=== PATIENT | female | born 1995 | race African-American/Black ===

== ENCOUNTER 2017-07-14 01:21 | Emergency (ER) | payer MEDICAID, OTHER ==
[~2017-07-14] VITALS: Ht 165.1 cm; Wt 72.6 kg
[~2017-07-14 01:21] MED LIST: BACTRIM DS TAB1 EAC1 ORAL; IBUPROFEN400 MG ORAL; IBUPROFEN600 MG PO; KEFLEX500 MG ORAL
[2017-07-14 01:34] VITALS: BP 122/71
[2017-07-14] MEDS ORDERED: Norco 5mg/325mg tab ORAL ONE (02:15)
[2017-07-14] MEDS ORDERED: Bactrim DS (160mg/800mg) tab ORAL ONE (02:15)
[2017-07-14] MEDS ORDERED: BACTRIM DS TAB1 EAC1 ORAL (02:16)
[2017-07-14] MEDS ORDERED: IBUPROFEN600 MG ORAL (02:16)
--- NOTE | 2017-07-14 02:17 | Emergency Room Report ---
History of Present Illness General Chief Complaint: Skin Rash/Abscess Source: Patient Present Illness HPI Is a 21-year-old female with recurrent abscess in her axilla. She never had it I&D before. She present with abscess to the left axilla. Onset for last 2-3 days. Painful with palpation or movement. No drainage. Does have swelling. Similar symptom in the past. Allergies: Coded Allergies: No Known Allergies (Unverified , 04/19/12) Patient History Past Medical History: see triage record, old chart reviewed Past Surgical History: none Pertinent Family History: none Social History: Denies: smoking Last Menstrual Period: Jun Now: No Immunizations: other Reviewed Nursing Documentation: PMH: Agreed, PSxH: Agreed Nursing Documentation-PMH Past Medical History: No Stated History Review of Systems Eye: Denies: eye pain, blurred vision ENT: Denies: ear pain, nose congestion, throat swelling Respiratory: Denies: cough, shortness of breath Cardiovascular: Denies: chest pain, palpitations Gastrointestinal: Denies: abdominal pain, diarrhea, nausea, vomiting Musculoskeletal: Denies: back pain, joint pain Skin: Denies: rash Neurological: Denies: headache, numbness Endocrine: Denies: increased thirst, increased urine Hematologic/Lymphatic: Denies: easy bruising All Other Systems: negative except mentioned in HPI Physical Exam Vital Signs Date Time Temp Pulse Resp B/P (MAP) Pulse Ox O2 Delivery O2 Flow Rate FiO2 07/14/17 01:23 98.1 80 16 120/69 100 Room Air vitals normal Sp02 EP Interpretation: reviewed, normal General Appearance: well appearing, no apparent distress, alert Head: normocephalic, atraumatic Eyes: bilateral eye PERRL, bilateral eye EOMI ENT: hearing grossly normal, normal pharynx Neck: full range of motion, supple, no meningismus Respiratory: chest non-tender, lungs clear, normal breath sounds Cardiovascular #1: regular rate, rhythm, no murmur Gastrointestinal: normal bowel sounds, non tender, no mass, no organomegaly, no bruit, non-distended Musculoskeletal: back normal, gait/station normal, normal range of motion, other - Left axilla: Is a large 3 x 2 cm area fluctuant. Tender to palpation. No redness. Neurologic: alert, oriented x3 Psychiatric: mood/affect normal Skin: warm/dry Procedures Incision and Drainage Incision and Drainage : Consent: Verbal Site: Left axilla Blade Size: 11 I & D Procedure: betadine prep, sterile drapes applied, gauze wick placed Wound Location: axilla Anesthesia: 1% Lidocaine Volume Anesthetic (ccs): 5 Patient Tolerated: Well Complications: None Progress Area clean with chlorhexidine and in Betadine. Local anesthetic 1% lidocaine without epinephrine. I made a 2 cm incision. There was moderate amount of pus expressed. Loculated area broken up. Wound irrigated. Packed with iodoform gauze. Patient tolerated procedure without a problem. Medical Decision Making Diagnostic Impression: Primary Impression: Abscess of axilla ER Course Present with abscess of the axilla. Most likely staff. Discharged home. No deep infection. No necrotizing fasciitis. Last Vital Signs Date Time Temp Pulse Resp B/P (MAP) Pulse Ox O2 Delivery O2 Flow Rate FiO2 07/14/17 01:34 98.1 78 16 122/71 100 Room Air Status: improved Disposition: HOME, SELF-CARE Condition: Stable Scripts Ibuprofen* (MOTRIN*) 600 Mg Tablet 600 MG ORAL THREE TIMES A DAY, #30 TAB 0 Refills Prov: ALIVIA CHANDLER M.D. 07/14/17 Trimethoprim/Sulfamethoxazole 160/800* (BACTRIM DS TABLET*) 1 Each Tablet 1 TAB ORAL Q12H, #14 TAB 0 Refills Prov: ALIVIA CHANDLER M.D. 07/14/17 Referrals: Nolan SEGAL,REFERRING (PCP) Patient Instructions: Abscess Additional Instructions: Followup with your DrJohn in 7 days. You may benefit from referral to see a surgeon. He did get your doctor to refer you to her surgeon or call [facility] surgical clinic. Return if symptom worsen. ALIVIA CHANDLER M.D. Jul 14, 2017 02:17
[2017-07-14 02:30] VITALS: BP 122/71
== END 2017-07-14 02:30 | disposition home or self-care (01) ==
LOC: EMR 01:47
DX: L02.412 Cutaneous abscess of left axilla (principal)
CPT/HCPCS: 10060; 99284

== ENCOUNTER 2017-07-17 01:03 | Emergency (ER) | payer OTHER ==
[~2017-07-17] VITALS: Ht 165.1 cm; Wt 72.6 kg
[~2017-07-17 01:03] MED LIST changes: +IBUPROFEN600 MG ORAL
[2017-07-17 01:20] VITALS: BP 102/66
--- NOTE | 2017-07-17 01:31 | Emergency Room Report ---
History of Present Illness General Chief Complaint: Wound Recheck/Suture Removal Source: Patient Present Illness HPI Is a 21-year-old female whom I saw 2 days ago for left axillary abscess. I I&D it. She is feeling better. Still having a lot of drainage. No fever chills but no nausea no vomiting. Increasing pain today. Allergies: Coded Allergies: No Known Allergies (Unverified , 04/19/12) Patient History Past Medical History: see triage record, old chart reviewed Past Surgical History: none Pertinent Family History: none Social History: Denies: smoking Last Menstrual Period: 07/09/17 Now: No : 0 Para: 0 Immunizations: other Reviewed Nursing Documentation: PMH: Agreed, PSxH: Agreed Nursing Documentation-PMH Past Medical History: No Stated History Review of Systems Eye: Denies: eye pain, blurred vision ENT: Denies: ear pain, nose congestion, throat swelling Respiratory: Denies: cough, shortness of breath Cardiovascular: Denies: chest pain, palpitations Gastrointestinal: Denies: abdominal pain, diarrhea, nausea, vomiting Musculoskeletal: Denies: back pain, joint pain Skin: Denies: rash Neurological: Denies: headache, numbness Endocrine: Denies: increased thirst, increased urine Hematologic/Lymphatic: Denies: easy bruising All Other Systems: negative except mentioned in HPI Physical Exam Vital Signs Date Time Temp Pulse Resp B/P (MAP) Pulse Ox O2 Delivery O2 Flow Rate FiO2 07/17/17 01:09 97.5 73 20 102/66 99 Room Air vitals normal Sp02 EP Interpretation: reviewed, normal General Appearance: well appearing, no apparent distress, alert Head: normocephalic, atraumatic Eyes: bilateral eye PERRL, bilateral eye EOMI ENT: hearing grossly normal, normal pharynx Neck: full range of motion, supple, no meningismus Respiratory: chest non-tender, lungs clear, normal breath sounds Cardiovascular #1: regular rate, rhythm, no murmur Gastrointestinal: normal bowel sounds, non tender, no mass, no organomegaly, no bruit, non-distended Musculoskeletal: back normal, gait/station normal, normal range of motion, other - Left axilla: I removed the packing. There still small amount of purulent drainage. Psychiatric: mood/affect normal Skin: warm/dry Procedures Incision and Drainage Incision and Drainage : Consent: Verbal Site: Left axilla Blade Size: 11 I & D Procedure: betadine prep Wound Location: upper extremity Anesthesia: 1% Lidocaine Patient Tolerated: Well Complications: None Progress Local anesthetic of 1% lidocaine without epinephrine injected. Using a forcep by open up the wound. There is still small amount of purulent discharge. I repacked it. Patient tolerated procedure without a problem. Medical Decision Making Diagnostic Impression: Primary Impression: Encounter for wound re-check Additional Impression: Abscess of axilla ER Course She presents with abscess to axilla. Improving but still draining. New packing placed. Patient will be discharged with followup in 2-3 days. Last Vital Signs Date Time Temp Pulse Resp B/P (MAP) Pulse Ox O2 Delivery O2 Flow Rate FiO2 07/17/17 01:09 97.5 73 20 102/66 99 Room Air Status: improved Disposition: HOME, SELF-CARE Condition: Stable Additional Instructions: Followup with your Dr. in 2-3 days. Return for recheck. Return if worse. ALIVIA CHANDLER M.D. Jul 17, 2017 01:31
[2017-07-17] MEDS ORDERED: Norco 5mg/325mg tab ORAL ONE (01:45)
== END 2017-07-17 01:30 | disposition home or self-care (01) ==
LOC: EMR 01:10
DX: L02.412 Cutaneous abscess of left axilla (principal); Z48.03 Encounter for change or removal of drains
CPT/HCPCS: 10060; 99283

== ENCOUNTER 2017-08-07 00:54 | Emergency (ER) | payer OTHER ==
[~2017-08-07] VITALS: Ht 165.1 cm; Wt 72.6 kg
[2017-08-07] MEDS ORDERED: HYDROCODON-ACE1 EA15 ORAL (01:41)
[2017-08-07] MEDS ORDERED: BACTRIM DS TAB1 EAC1 ORAL (01:41)
--- NOTE | 2017-08-07 01:42 | Emergency Room Report ---
History of Present Illness General Chief Complaint: Skin Rash/Abscess Source: Patient Present Illness HPI Is a 22-year-old female who has a history of recurrent abscess to left axilla. Seen her several times already. She presents with an abscess to left axilla. Onset for last 2-3 days. Some drainage. Painful. Worse with movement or palpation. No trauma. No fever or chills. No nausea no vomiting. Similar presentation in the past. Allergies: Coded Allergies: No Known Allergies (Unverified , 04/19/12) Patient History Past Medical History: see triage record, old chart reviewed Past Surgical History: other Pertinent Family History: none Social History: Denies: smoking Last Menstrual Period: Jul 09 Now: No : 0 Immunizations: other Reviewed Nursing Documentation: PMH: Agreed, PSxH: Agreed Nursing Documentation-PMH Past Medical History: No Stated History Review of Systems Eye: Denies: eye pain, blurred vision ENT: Denies: ear pain, nose congestion, throat swelling Respiratory: Denies: cough, shortness of breath Cardiovascular: Denies: chest pain, palpitations Gastrointestinal: Denies: abdominal pain, diarrhea, nausea, vomiting Musculoskeletal: Denies: back pain, joint pain Skin: Denies: rash Neurological: Denies: headache, numbness Endocrine: Denies: increased thirst, increased urine Hematologic/Lymphatic: Denies: easy bruising All Other Systems: negative except mentioned in HPI Physical Exam Vital Signs Date Time Temp Pulse Resp B/P (MAP) Pulse Ox O2 Delivery O2 Flow Rate FiO2 08/07/17 00:59 98.1 73 18 150/73 98 Room Air vitals normal except for high blood pressure Sp02 EP Interpretation: reviewed, normal General Appearance: well appearing, no apparent distress, alert Head: normocephalic, atraumatic Eyes: bilateral eye PERRL, bilateral eye EOMI ENT: hearing grossly normal, normal pharynx Neck: full range of motion, supple, no meningismus Respiratory: chest non-tender, lungs clear, normal breath sounds Cardiovascular #1: regular rate, rhythm, no murmur Gastrointestinal: normal bowel sounds, non tender, no mass, no organomegaly, no bruit, non-distended Musculoskeletal: back normal, gait/station normal, normal range of motion, other - Left axilla: Scarring and induration. There is a s fluctuant area inferiorly. Also another one superiorly. Psychiatric: mood/affect normal Skin: warm/dry Procedures Incision and Drainage Incision and Drainage : Consent: Verbal Site: Left axilla Blade Size: 11 I & D Procedure: betadine prep, sterile drapes applied, sterile dressing applied, gauze wick placed Wound Location: other - Left axilla Wound Explored: clean Anesthesia: 1% Lidocaine Volume Anesthetic (ccs): 10 Patient Tolerated: Well Complications: None Medical Decision Making Diagnostic Impression: Primary Impression: Hidradenitis suppurativa of left axilla ER Course Present with recurrent abscess of the axilla. Most likely MRSA. Wound cultures sent. She will need more definitive treatment with her surgeon as an outpatient. We'll discharge with followup. No deep infection. No sepsis. Last Vital Signs Date Time Temp Pulse Resp B/P (MAP) Pulse Ox O2 Delivery O2 Flow Rate FiO2 08/07/17 00:59 98.1 73 18 150/73 98 Room Air Status: improved Disposition: HOME, SELF-CARE Condition: Stable Scripts Hydrocodone/Acetaminophen 5-325* (HYDROCODONE/ACETAMINOPHEN 5-325*) 1 Each Tablet 1 TAB ORAL Q6H Y for For Pain, #20 TAB 0 Refills Prov: ALIVIA CHANDLER M.D. 08/07/17 Trimethoprim/Sulfamethoxazole 160/800* (BACTRIM DS TABLET*) 1 Each Tablet 1 TAB ORAL Q12H, #14 TAB 0 Refills Prov: ALIVIA CHANDLER M.D. 08/07/17 Referrals: Nolan SEGAL,REFERRING (PCP) Patient Instructions: Abscess Additional Instructions: Followup with your DrJohn in 3-5 days for recheck. You will be referred to see a surgeon. Return in 2 days for wound check and packing removal. Return if worse. ALIVIA CHANDLER M.D. Aug 07, 2017 01:42
[2017-08-07 01:46] VITALS: BP 150/73
== END 2017-08-07 01:47 | disposition home or self-care (01) ==
LOC: EMR 01:05
DX: L73.2 Hidradenitis suppurativa (principal)
CPT/HCPCS: 10060; 87070; 87205; 99283

== ENCOUNTER 2018-09-09 08:53 | Emergency (ER) | payer MEDICAID, OTHER ==
[~2018-09-09] VITALS: Ht 165.1 cm; Wt 72.6 kg
[~2018-09-09 08:53] MED LIST changes: +HYDROCODON-ACE1 EA15 ORAL
[2018-09-09 08:55] VITALS: BP 111/72
[2018-09-09] MEDS ORDERED: NKM (08:58)
[2018-09-09] MEDS ORDERED: BACITRACIN1 EACH TOPIC (09:26)
[2018-09-09] MEDS ORDERED: BACTRIM DS TAB1 EAC1 ORAL (09:26)
[2018-09-09] MEDS ORDERED: CEPHALEXIN500 MG ORAL (09:26)
--- NOTE | 2018-09-09 09:29 | NUR ---
ED Nurse Note: Pt was seen due to right armpit boil. Pt cleared by Health Care Provider for discharge. DC instructions/prescription was given and explained to the pt and verbalized understanding of teachings. All medical devices such as ID band removed. Pt is AAO x4, ambulatory and left with all personal belongings.
--- NOTE | 2018-09-09 09:34 | Emergency Room Report ---
History of Present Illness General Chief Complaint: Skin Rash/Abscess Source: Patient Present Illness HPI Patient presents with complaints of redness to the right axilla Patient has been told that she requires further intervention for her axilla bilaterally however reports that she does not have time to pursue that further she currently plays basketball Nevertheless patient had increased redness and increased discomfort to the right axilla over the past several days denies any discharge denies any fevers or chills Denies any spread of the redness Allergies: Coded Allergies: No Known Allergies (Unverified , 09/09/18) Patient History Past Medical History: see triage record Pertinent Family History: none Last Menstrual Period: 07/16/18 Now: No Reviewed Nursing Documentation: PMH: Agreed; PSxH: Agreed Nursing Documentation-PMH Past Medical History: No Stated History Review of Systems All Other Systems: negative except mentioned in HPI Physical Exam Vital Signs Date Time Temp Pulse Resp B/P (MAP) Pulse Ox O2 Delivery O2 Flow Rate FiO2 09/09/18 08:55 97.5 76 16 111/72 100 Room Air Sp02 EP Interpretation: reviewed, normal General Appearance: well appearing, no apparent distress Head: normocephalic, atraumatic Eyes: bilateral eye PERRL, bilateral eye EOMI ENT: normal pharynx, no angioedema Neck: supple, thyroid normal Respiratory: no retraction, no accessory muscle use Cardiovascular #1: regular rate, rhythm, no edema Gastrointestinal: non tender, soft Musculoskeletal: normal inspection Neurologic: alert, oriented x3, responsive Skin: other - Classical signs of suppurative hidradenitis. Bilaterally. Right side shows some mild increased erythema no obvious fluctuance Lymphatic: no adenopathy Medical Decision Making Diagnostic Impression: Primary Impression: cellulitis Additional Impressions: folliculitis Suppurative hidradenitis ER Course Patient initiated on oral antibiotics At this time patient does not show any signs of requiring incision and drainage she did have a procedure done last year however at this time given the exam and findings will have initial antibiotic coverage She was also encouraged highly to follow up closely with specialty follow-up for further definitive procedure Last Vital Signs Date Time Temp Pulse Resp B/P (MAP) Pulse Ox O2 Delivery O2 Flow Rate FiO2 09/09/18 08:55 97.5 16 111/72 100 Room Air 09/09/18 08:55 76 Status: unchanged Disposition: HOME, SELF-CARE Condition: Stable Scripts Bacitracin (BACITRACIN*) 1 Each Packet 1 PACKET TOPIC DAILY, #30 PACKET 0 Refills Prov: Wilma Shaw DO 09/09/18 Trimethoprim/Sulfamethoxazole 160/800* (BACTRIM DS TABLET*) 1 Each Tablet 1 TAB ORAL Q12H, #20 TAB 0 Refills Prov: Wilma Shaw DO 09/09/18 Cephalexin* (KEFLEX*) 500 Mg Capsule 500 MG ORAL EVERY 6 HOURS for 10 Days, CAP Prov: Wilma Shaw DO 09/09/18 Referrals: Kaity Garcia MD Patient Instructions: Cellulitis, [id number], Folliculitis Additional Instructions: You require close follow-up with specialty consultation. The area any or axillary region requires a plastic/Gen. surgery evaluation Patient is provided with the discharge instructions notified to follow up with primary doctor in the next 2-3 days otherwise return to the er with any worsening symptoms. Please note that this report is being documented using [employer] technology. This can lead to erroneous entry secondary to incorrect interpretation by the dictating instrument. Wilma Shaw DO Sep 09, 2018 09:34
== END 2018-09-09 09:29 | disposition home or self-care (01) ==
LOC: EMR 09:15
DX: L03.111 Cellulitis of right axilla (principal); L73.9 Follicular disorder, unspecified; L73.2 Hidradenitis suppurativa
CPT/HCPCS: 99282